=== PATIENT | female | born 1955 | race Caucasian/White ===

== ENCOUNTER 2016-12-16 05:38 | Inpatient (IN) | payer OTHER, BC ==
[2016-11-29 08:31] LABS: HEMATOCRIT 41.6 % (37.0-47.0); HEMOGLOBIN 13.8 gm/dL (12.0-15.0); MCH 29.1 pg (26.0-34.0); MCHC 33.3 g/dL (28.0-37.0); MCV 87.4 fL (80.0-100.0); RBC 4.76 mil/uL (4.20-5.00); RDW 15.2 % (10.5-14.5); WBC 8.8 thou/uL (4.0-11.0)
[2016-11-29 08:32] LABS: URINE BILIRUBIN NEGATIVE (Negative); URINE BLOOD TRACE (Negative); URINE COLOR YELLOW; URINE GLUCOSE-RANDOM* NEGATIVE (Negative); URINE KETONES NEGATIVE (Negative); URINE LEUKOCYTES-REFLEX NEGATIVE (Negative); URINE PROTEIN (DIPSTICK) NEGATIVE (Negative); URINE SPECIFIC GRAVITY 1.015 (1.003-1.035); URINE UROBILINOGEN 0.2 E.U./dl (0.2-1.0)
[2016-11-29 08:57] LABS: ALBUMIN 3.6 g/dL (3.4-5.0); CALCIUM 8.4 mg/dL (8.5-10.1); CREATININE 0.7 mg/dL (0.6-1.0); POTASSIUM 4.2 mmol/L (3.5-5.1); PROTIME 10.2 Seconds (9.3-11.4)
[~2016-12-16] VITALS: Ht 157.5 cm; Wt 68.9 kg
[2016-12-16] VITALS (9 sets, daily range): BP systolic 99–149; BP diastolic 50–90
--- NOTE | ~2016-12-16 | O ---
[facility] [place] [address] OPERATIVE REPORT Name: DORCAS KIDD Room #: 538-P ADM IN M.R.#: [id number] Admission: 12/16/16 Attend Phys: Primo Cruz MD Discharge: Date of : 57 Report #: [id number] THIS REPORT FOR: //name// CC: Srinivasan Cruz DATE OF SERVICE: 12/16/2016 PREOPERATIVE DIAGNOSIS: Right knee severe rheumatoid arthritis. POSTOPERATIVE DIAGNOSIS: Right knee severe rheumatoid arthritis. PROCEDURE: Right total knee arthroplasty. SURGEON: Primo Cruz MD. COMMERCIAL PLUMBER: Jammie Jordan PA-C. ANESTHESIA: LMA with an adductor canal block. IMPLANTS: We used [employer] size 4 Legion cobalt chrome posterior stabilized femur with 5 mm distal wedge and size 2 tibia, a size 10 polyethylene, and a size 32 patella. TOURNIQUET TIME: 82 minutes. ESTIMATED BLOOD LOSS: 50 mL. COMPLICATIONS: None. SPECIMENS: None. CONDITION UPON LEAVING THE OPERATING ROOM: Stable. INDICATIONS FOR PROCEDURE: He is a 61-year-old female with severe rheumatoid arthritis. She has had severe degeneration of her knee and after failure of conservative treatment and discussion with her, she elected for right total knee arthroplasty. DESCRIPTION OF PROCEDURE: Risks, benefits, alternatives, and complications were discussed in detail with the patient including but not limited to risk of anesthesia, risk of damage to nerves, arteries, blood vessels, risk for infection, bleeding, risk for continued knee pain, and need for reoperation. An informed consent was obtained from the patient. The right knee was appropriately marked in the preoperative holding area. An adductor canal block was placed by anesthesia. IV Ancef was given for preoperative antibiotics. She [address] [address] OPERATIVE REPORT Name: DORCAS KIDD Marco A Room #: 538-P [facility] IN .R.#: [id number] Admission: 12/16/16 Attend Phys: Primo Cruz MD Discharge: Date of : 57 Report #: [id number] was brought to the operating room and placed in the supine position on the operating room table. LMA anesthesia was induced without complication. Tourniquet was placed on her right thigh. Right lower extremity was prepped and draped in the normal sterile fashion. Timeout was performed properly identifying the patient and procedure, as well as the instrumentation and implants. All in the operating room were in agreement. Right lower extremity was exsanguinated, tourniquet was inflated. Tourniquet time was 82 minutes. Standard midline approach to the knee was made with #10 blade through the skin. Dissection was taken down to the fascia, and deep flaps were developed medially and laterally. Fresh #10 blade was used to make a medial parapatellar arthrotomy, and the knee was inspected. There was extensive rheumatoid arthritic change of the knee with severe bone loss and pannus formation. Synovectomy was performed with a Bovie cautery. The patella was everted, and the knee was flexed. Deep retractors were placed. The ACL and PCL were removed sharply. Distal femoral cutting block was pinned in place after gaining access to the femoral canal, and distal femoral cut was made. There was extensive degeneration of the medial femoral condyle, and this bone was tenuous that it was felt that we may end up needing a 5 mm wedge on the medial side. Femur was sized, found to be of size 4, and size 4, 4-in-1 cutting block was placed. The anterior, posterior, and chamfer cuts were made. After this, the tibia was subluxed anteriorly, and the menisci were removed with Bovie cautery. Drill was used to gain access to the canal of the tibia, and the tibial resection was based off the lateral plateau. Tibial resection was made and posterior osteophytes were removed from the femur. Flexion and extension gaps were checked and found to be tight in extension. A 2 mm of additional femur were taken, and the chamfer cuts were redone. After this, there was good balance of the knee in flexion and extension. Trial size 2 tibia was placed. The trial 4 femur was placed, and this was trialed with a size 9 polyethylene. At this point, given the bone defect medially to the femoral component, tended to subside and to wear, and so it was decided that we would go ahead with a 5 mm wedge on the final implant. Box cut was made, and this was trialed with a size 9 polyethylene and found to have good balance in flexion and extension. 9 mm was taken off the posterior surface of the patella and a 32 patellar button trial was placed. Knee was taken through range of motion, found to be stable, found to have good balance in flexion and extension, both medially and laterally. After this, trial components were removed. Bony ends were thoroughly irrigated with normal saline. The final implants were opened, and the knee was trialed with the final implants using a 5 mm wedge to make sure that we had good stability of the knee and good alignment as was the case. Implants were removed. Bony ends were thoroughly irrigated again, and the final implants were cemented using standard cementation techniques. A size 2 tibia was cemented and size 4 Legion cobalt chrome posterior stabilized femur with a 5 mm wedge medially and a size 32 patella. After the cement cured, the knee was then trialed again with a size 9 polyethylene, and then size 10. The size 10 polyethylene had better stability. Final size 10 polyethylene was placed. Knee was taken through range of motion, found to be stable, found to have good [facility] [address] [place] [address] OPERATIVE REPORT Name: DORCAS KIDD Room #: 538-P ADM IN M.R.#: [id number] Admission: 12/16/16 Attend Phys: Primo Cruz MD Discharge: Date of : 57 Report #: [id number] patellar tracking and good balance. The knee was thoroughly irrigated with normal saline. A periarticular injection consisting of ropivacaine, morphine, Toradol, and epinephrine was placed around the knee joint. The fascia was closed with 0 Vicryl. Skin was closed with 2-0 Vicryl, Monocryl, and Dermabond. A soft dressing of an Aquacel was applied. The patient tolerated this procedure well and went to the recovery room under the care of anesthesia postoperatively. <ELECTRONICALLY SIGNED> By: Primo Cruz MD 12/16/16 1643 [id number] Primo Cruz MD /nt
--- NOTE | ~2016-12-16 | H ---
[facility] [address] [place] [address] HISTORY AND PHYSICAL Name: DORCAS KIDD Room #: 538-P [facility] IN M.R.#: [id number] Admission: 12/16/16 Attend Phys: Primo Cruz MD Discharge: 12/18/16 Date of : 57 Report #: [id number] THIS REPORT FOR: //name// For History and Physical, please see office documentation/handwritten note in the patient's medical record. By: [id number] Primo Cruz MD /
[~2016-12-16 05:38] MED LIST: FOLIC ACID 40400 MCG PO; METHOTREXATE 22.5 MG PO; ORENCIA125 MG/1 M IV; TUMS PO
[2016-12-17 05:00] VITALS: BP 128/65
[2016-12-17 05:36] LABS: HEMATOCRIT 31.8 % (37.0-47.0); HEMOGLOBIN 10.5 gm/dL (12.0-15.0); MCH 29.6 pg (26.0-34.0); MCHC 33.2 g/dL (28.0-37.0); MCV 89.2 fL (80.0-100.0); RBC 3.56 mil/uL (4.20-5.00); RDW 15.5 % (10.5-14.5); WBC 11.6 thou/uL (4.0-11.0)
[2016-12-17 08:10] VITALS: BP 109/53
[2016-12-17 15:45] VITALS: BP 127/57
[2016-12-17 19:20] VITALS: BP 108/57
[2016-12-18 03:17] VITALS: BP 121/56
[2016-12-18 06:26] LABS: HEMOGLOBIN 9.6 gm/dL (12.0-15.0); MCH 29.7 pg (26.0-34.0); MCHC 33.2 g/dL (28.0-37.0); MCV 89.5 fL (80.0-100.0); RBC 3.24 mil/uL (4.20-5.00); WBC 17.4 thou/uL (4.0-11.0)
[2016-12-18 07:26] VITALS: BP 80/57
[2016-12-18] MEDS ORDERED: PERCOCET PO (13:59)
[2016-12-18] MEDS ORDERED: MS CONTIN15 MG PO (14:00)
[2016-12-18] MEDS ORDERED: NEURONTIN 300300 M1 PO (14:02)
[2016-12-18] MEDS ORDERED: CVS BUFFERED A325 MG PO (14:03)
[2016-12-18 14:27] VITALS: BP 80/57
[2016-12-18 14:35] VITALS: BP 80/57
== END 2016-12-18 14:58 | disposition home or self-care (01) | DRG 470 ==
LOC: TBA 05:38 → 5S 05:38 → PRE 07:40 → 5S 13:14
PROVIDERS: Orthopaedic Surgery
PROC: 0SRC0J9 Replacement of Right Knee Joint with Synthetic Substitute, Cemented, Open Approach (ICD-10-PCS; principal; 2016-12-16)
DX: M06.9 Rheumatoid arthritis, unspecified (principal)
CPT/HCPCS: 10785; 50010; 50101; 50415; 50954; 51130; 51225; 51771; 52256; 53000; 53078; 53364; 54118; 56527; 56528; 57095; 62110; 62900; 64042; 64043; 70005